=== PATIENT | female | born 1985 | race Caucasian/White ===

== ENCOUNTER → 2018-07-18 | Outpatient (CLI) | payer OTHER ==
--- NOTE | 2018-07-18 08:18 | CT ---
EXAMINATION TYPE: CT brain w con DATE OF EXAM: 07/18/2018 COMPARISON: 09/19/2011 HISTORY: Facial nerve disorder CT DLP: 999.8 mGycm Automated Exposure Control for Dose Reduction was Utilized. TECHNIQUE: CT scan of the head is performed with IV contrast.,CT scan of the head is performed withou t and with with IV Contrast, patient injected with 100 mL of Isovue 300. FINDINGS: Aneurysm coil clips creates spray artifact in the supraclinoid portion of the right interna l carotid artery. Mild calcific atheromatous changes are seen of the cavernous portion of the right i nternal carotid artery. Vascular stent is suspected within the right cavernous portion of the interna l carotid artery The ventricles and sulci are within normal limits in size. 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 This appears at least mild mass effect upon the supe rior tectum without obstruction of the cerebral aqueduct. The globes are intact and the visualized si nuses are clear. There is asymmetric enhancement in size of the enlarged left cavernous sinus such as on series 3 imag e 11. Although this is not the course of the facial nerve other nerves may be affected (3-6 excluding V3). No cerebellar pontine angle mass. IMPRESSION: Asymmetric size and enhancement of the left cavernous sinus that could relate to cavernous sinus aneu rysm, cavernous carotid fistula (less likely given the normal size of the left superior ophthalmic ve in), or extradural enhancement such as a meningioma. Although the 7th cranial nerve would be unaffect ed the 3rd through 6th cranial nerves excluding V3 would be affected. Further evaluation with enhance d MRI is recommended.
== END | disposition home or self-care (01) ==
LOC: RADCTMAIN 07:24
PROVIDERS: ATTEND Family Medicine
DX: D32.0 Benign neoplasm of cerebral meninges (principal); G51.9 Disorder of facial nerve, unspecified
CPT/HCPCS: 70460; Q9967

== ENCOUNTER 2021-07-18 03:49 | Inpatient (IN) | payer MEDICAID, OTHER ==
[2021-07-18] MEDS ORDERED: MAG HYDROX/AL HYDROX/SIMETH 30 ML CUP PO PRN (07:04)
[2021-07-18] MEDS ORDERED: ACETAMINOPHEN TAB 325 MG TAB PO PRN (07:04)
[2021-07-18] MEDS ORDERED: haloperidoL 5 MG TAB PO PRN (07:04)
[2021-07-18] MEDS ORDERED: MAGNESIUM HYDROXIDE 2,400 MG/10 ML CUP PO PRN (07:04)
[2021-07-18] MEDS ORDERED: LORazepam 1 MG TAB PO PRN (07:04)
[2021-07-18] MEDS ORDERED: HALOPERIDOL LACTATE 5 MG/ML 1 ML VIAL IM PRN (07:04)
[2021-07-18] MEDS ORDERED: LORazepam 2 MG/ML INJ IM PRN (07:04)
--- NOTE | 2021-07-18 07:44 | ED ---
Psych HPI - General Chief Complaint: Psychiatric Symptoms Stated Complaint: Mental health Time Seen by Provider: 07/18/21 04:12 Source: patient Mode of arrival: ambulatory - History of Present Illness MD Complaint: suicidal ideation, feels depressed -: month(s) Associated Psychiatric Symptoms: depression, suicidal ideation History of same: Yes Quality: getting worse Improves With: none Worsens With: none Context: recent alcohol abuse Associated Symptoms: denies other symptoms - Related Data Home Medications Medication Instructions Recorded Confirmed Aspirin 325 mg PO BID 05/15/16 05/15/16 Allergies Allergy/AdvReac Type Severity Reaction Status Date / Time No Known Allergies Allergy Verified 07/18/21 04:08 Review of Systems ROS Statement: Those systems with pertinent positive or pertinent negative responses have been documented in the HPI. ROS Other: All systems not noted in ROS Statement are negative. Constitutional: Denies: fever, chills Respiratory: Denies: cough, dyspnea Cardiovascular: Denies: chest pain, palpitations Gastrointestinal: Denies: abdominal pain, vomiting, diarrhea Genitourinary: Denies: dysuria, abnormal menses Musculoskeletal: Denies: back pain Neurological: Denies: headache, weakness, numbness Psychiatric: Reports: depression, suicidal thoughts. Denies: auditory hallucinations, visual hallucinations, homicidal thoughts Past Medical History Additional Past Medical History / Comment(s): aneurysm History of Any Multi-Drug Resistant Organisms: None Reported Past Surgical History: Tonsillectomy Additional Past Surgical History / Comment(s): brain coil and stent, cervical Past Psychological History: Anxiety, Depression Smoking Status: Current every day smoker Past Alcohol Use History: Occasional Past Drug Use History: Marijuana General Exam Limitations: no limitations General appearance: alert, in no apparent distress Head exam: Present: atraumatic, normocephalic Eye exam: Present: normal appearance. Absent: scleral icterus, conjunctival injection Respiratory exam: Present: normal lung sounds bilaterally. Absent: respiratory distress, wheezes, rales, rhonchi, stridor Cardiovascular Exam: Present: regular rate, normal rhythm, normal heart sounds. Absent: systolic murmur, diastolic murmur, rubs, gallop GI/Abdominal exam: Present: soft. Absent: distended, tenderness, guarding, rebound, rigid, mass Extremities exam: Present: normal inspection, normal capillary refill. Absent: pedal edema, calf tenderness Back exam: Present: normal inspection Neurological exam: Present: alert Psychiatric exam: Present: depressed, suicidal ideation. Absent: agitated, anxious, flat affect, manic, homicidal ideation Skin exam: Present: warm, dry, intact, normal color. Absent: rash Course Vital Signs 07/18/21 07/18/21 04:04 06:01 Temperature 97.9 F 98.9 F Pulse Rate 131 H 63 Respiratory 20 15 Rate Blood Pressure 133/90 101/73 O2 Sat by Pulse 98 100 Oximetry Medical Decision Making - Lab Data Lab Results 07/18/21 Range/Units 06:39 Coronavirus (PCR) Not Detected (Not Detectd)
[2021-07-18] MEDS: NICOTINE 14MG/24HR PATCH TRANSDERM SCH (10:09)
[2021-07-18] MEDS: ASPIRIN 325 MG TAB PO SCH (10:27)
[2021-07-18 10:28] VITALS: RESP 16
[2021-07-18 10:36] LABS: Appearance,Urine Turbid (Clear); Bacteria,Urine Occasional /hpf; Bilirubin,Urine Negative (Negative); Blood,Urine Trace (Negative); Color,Urine Yellow; Glucose,Urine (UA) Negative (Negative); Ketones,Urine Negative (Negative); Leukocyte Esterase,Urine Large (Negative); Mucus,Urine Few /hpf; Nitrite,Urine Negative (Negative); PH, Urine 5.5 (5.0-8.0); Protein,Urine Trace (Negative); RBC,Urine 8 /hpf (0-5); Specific Gravity,Urine 1.013 (1.001-1.035); Squamous Epithelial Cell,Urine 61 /hpf (0-4); Urobilinogen,Urine <2.0 mg/dL (<2.0); WBC,Urine 10 /hpf (0-5)
[2021-07-18 12:16] LABS: Basophils # (A) 0.1 k/uL (0-0.2); Basophils % (A) 1 %; Eosinophils # (A) 0.2 k/uL (0-0.7); Eosinophils % (A) 3 %; HCT 42.6 % (34.0-46.0); HGB 13.9 gm/dL (11.4-16.0); Lymphocytes # (A) 3.3 k/uL (1.0-4.8); Lymphocytes % (A) 38 %; MCH 29.2 pg (25.0-35.0); MCHC 32.7 g/dL (31.0-37.0); MCV 89.5 fL (80.0-100.0); Mean Platelet Volume 8.3; Monocytes # (A) 0.5 k/uL (0-1.0); Monocytes % (A) 5 %; Neutrophils # (A) 4.5 k/uL (1.3-7.7); Neutrophils % (A) 52 %; Platelet Count 282 k/uL (150-450); RBC 4.76 m/uL (3.80-5.40); RDW 12.7 % (11.5-15.5); WBC 8.7 k/uL (3.8-10.6)
[2021-07-18 12:34] LABS: ALT 63 U/L (4-34); AST 39 U/L (14-36); African American GFR (CKD) >90 (>60 ml/min/1.73 sqM); Albumin 4.2 g/dL (3.5-5.0); Alkaline Phosphatase 99 U/L (38-126); Anion Gap 4 mmol/L; Bilirubin, Delta 0.3 mg/dL (0.0-0.2); Blood Urea Nitrogen 15 mg/dL (7-17); Calcium 9.8 mg/dL (8.4-10.2); Carbon Dioxide 27 mmol/L (22-30); Chloride 108 mmol/L (98-107); Glucose 87 mg/dL (74-99); Non-African American GFR(CKD) >90 (>60 ml/min/1.73 sqM); Potassium 4.4 mmol/L (3.5-5.1); Sodium 139 mmol/L (137-145); Total Bilirubin 0.3 mg/dL (0.2-1.3); Total Protein 7.1 g/dL (6.3-8.2)
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
[2021-07-18] MEDS: LITHIUM CARBONATE 300 MG CAP PO SCH (20:58)
[2021-07-18 22:27] LABS: Chol/HDL Ratio 3.55 Ratio; LDL Cholesterol,Calculated 82.7 mg/dL (0.0-131.0)
[2021-07-19] MEDS: POTASSIUM CHLORIDE ER 10 MEQ TAB.ER.PRT PO SCH (09:18)
[2021-07-19] MEDS: MAGNESIUM OXIDE 400 MG TAB PO SCH (09:18)
[2021-07-19] MEDS: NICOTINE 14MG/24HR PATCH TRANSDERM SCH (09:18)
[2021-07-19] MEDS: ASPIRIN 325 MG TAB PO SCH (09:18)
[2021-07-19 12:08] LABS: Urine Alcohol Positive (Negative); Urine Barbiturate Negative (Negative); Urine Cocaine Negative (Negative); Urine Methadone Negative (Negative); Urine Opiates Negative (Negative); Urine Phencyclidine Negative (Negative)
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
[2021-07-19] MEDS: LITHIUM CARBONATE 300 MG CAP PO SCH (21:00)
[2021-07-20] MEDS: NICOTINE 14MG/24HR PATCH TRANSDERM SCH (08:35)
[2021-07-20] MEDS: POTASSIUM CHLORIDE ER 10 MEQ TAB.ER.PRT PO SCH (08:35)
[2021-07-20] MEDS: ASPIRIN 325 MG TAB PO SCH (08:35)
[2021-07-20] MEDS: MAGNESIUM OXIDE 400 MG TAB PO SCH (08:35)
[2021-07-20 08:38] VITALS: TEMP 97.3
--- NOTE | 2021-07-20 11:41 | P.PN ---
Progress Note - Text Progress Note Date: 07/20/21 Interval History: Patient was seen taking part in group today and was directable and agreeable to speak with underwriter in the office. Patient spoke about her relationship with her and claims that they got into an argument before she came into the hospital. She states that at that time she is feeling suicidal. She states that they were arguing about her infertility and that she wanted to get . She claims that he has been a strong source of support for her. She states that her mood has been fluctuating and describes "mood swings". She also claims that she has a history of manic episodes where she will not sleep for several days and "clean the house and other people's house". She states that her sleep has always been "an issue". She states that yesterday she slept well. She was agreeable to start Zoloft today for her anxiety and mood. She states that the lithium has been helping stabilize her mood and nighttime. She describes a fair appetite and is trying to begin going to groups. At this time patient denies any suicidal or homical ideations, intent or plan. Patient denies any auditory, visual hallucinations and denies any paranoia or delusions. Patient denies any side effects from the medications and has been compliant with meds. Mental Status Exam: General Appearance: Patient appears to be stated age is overweight, alert, directable, and cooperative. Behavior: Patient is calmly seated without any agitated behavior. Speech: Patient's speech is fluent and nonpressured. Mood/Affect: Mood is depressed however is improving mildly, affect is congruent and tearful at times Suicidality/Homicidality: Patient denies having any suicidal or homicidal i deation intent or plan. Perceptions: Patient denies any visual hallucinations and denies any auditory hallucinations Though content/process: There is no evidence of any delusional thought content and thought process is linear and goal-directed. Focused on her stressors. Memory and concentration: AOX3, grossly intact for the purposes of this session Judgment and insight: Improving mildly Assessment Bipolar disorder, current episode depressed Cannabis use disorder Alcohol use disorder Nicotine dependence Plan: -Patient continues to meet criteria for inpatient psychiatric admission for sym ptom stabilization and safety. Patient has signed adult voluntary form and medication consent and was placed in patient's chart. -Medications: Switch lithium to lithium ER 900 mg daily at bedtime for mood stabilization. Added on Zoloft 25 mg daily for mood/anxiety. Added melatonin 10 mg daily at bedtime for sleep. -When necessary Ativan and Haldol for agitation/aggression. -NRT - nicotine patch -SW on board for discharge planning. Encouraged the patient to participate in milieu. Likely discharge tomorrow back home the patient is improving.
[2021-07-20] MEDS: SERTRALINE 25 MG TAB PO SCH (13:15)
[2021-07-20] MEDS ORDERED: LITHIUM CARBONATE ER 450 MG TABLET.ER PO SCH (21:00)
[2021-07-20] MEDS ORDERED: MELATONIN 5 MG TABLET PO SCH (21:00)
--- NOTE | 2021-07-21 00:22 | P.CONS ---
History of Present Illness - Reason for Consult Consult date: 07/20/21 - History of Present Illness The patient is a 35-year-old female with a PMH of substance abuse, tobacco abuse, and alcohol abuse who presented to the emergency room for depression and suicidal ideation. She was admitted to the mental health unit where she was seen and evaluated. The patient reports that she had recently got into an argument which escalated with her . She had felt really bad about her life and proceeded to use methamphetamines. She reports smoking 1 pack of cigarettes daily as well as weekly alcohol use. Reports marijuana use as well. Denied any physical complaints at the time of interview. She denied chest discomfort, shortness of breath, fever, chills, cough, nausea, vomiting, abdomi nal pain, diarrhea. Review of systems: Pertinent positives and negatives as discussed in HPI, a complete review of systems was performed and all other systems are negative. Physical examination: General: non toxic, no distress, appears at stated age, obese Derm: no unusual rashes/lesions no unusual ecchymoses, warm, dry Head: atraumatic, normocephalic, symmetric Eyes: EOMI, no lid lag, anicteric sclera, pupils equal round reactive to light ENT: Nose and ears atraumatic, no thrush, no pharyngeal erythema Neck: No thyromegaly, no cervical lymphadenopathy, trachea midline, supple Mouth: no lip lesion, mucus membranes moist Cardiovascular: S1S2 reg, no murmur, positive posterior tibial pulse bilateral, no edema, capillary refill less than 2 seconds Lungs: CTA bilateral, no rhonchi, no rales , no accessory muscle use Abdominal: soft, nontender to palpation, no guarding, no appreciable org anomegaly, normal bowel sounds Ext: no gross muscle atrophy, muscle strength 5 out of 5 in all 4 extremities grossly, no contractures, Neuro: CN II-XI grossly intact, light touch intact all 4 extremities, finger to nose within normal limits, Psych: Alert, oriented, appropriate affect Assessment/plan Substance abuse -Strongly advised on importance of cessation Tobacco abuse -Advised on importance of cessation -Nicotine patch as needed Depression and suicidal ideation -As per psychiatry Thank you for allowing us to participate in the care of this patient. We will follow peripherally. Do not hesitate to contact us with questions. Someone can be reached from the [facility] hospitalist group at all hours of the day at [phone]. Past Medical History Additional Past Medical History / Comment(s): aneurysm History of Any Multi-Drug Resistant Organisms: None Reported Past Surgical History: Tonsillectomy Additional Past Surgical History / Comment(s): brain coil and stent, cervical Past Psychological History: Anxiety, Depression Smoking Status: Current every day smoker Past Alcohol Use History: Occasional Past Drug Use History: Marijuana Medications and Allergies Home Medications Medication Instructions Recorded Confirmed Type Aspirin 325 mg PO DAILY 05/15/16 07/18/21 History Magnesium Oxide [Mag-Ox] 400 mg PO DAILY 07/18/21 07/18/21 History Potassium Gluconate [Potassium 198 mg PO DAILY 07/18/21 07/18/21 History Gluconate ER] Allergies Allergy/AdvReac Type Severity Reaction Status Date / Time No Known Allergies Allergy Verified 07/18/21 08:24 Physical Exam Vitals: Vital Signs Temp Pulse Resp BP Pulse Ox 07/20/21 08:35 97.3 F L 103 H 16 153/87 98 Results CBC & Chem 7: 07/18/21 11:39 07/18/21 11:39
[2021-07-21] MEDS: NICOTINE 14MG/24HR PATCH TRANSDERM SCH (09:11)
[2021-07-21] MEDS: SERTRALINE 25 MG TAB PO SCH (09:11)
[2021-07-21] MEDS: MAGNESIUM OXIDE 400 MG TAB PO SCH (09:11)
[2021-07-21] MEDS: ASPIRIN 325 MG TAB PO SCH (09:11)
[2021-07-21] MEDS: POTASSIUM CHLORIDE ER 10 MEQ TAB.ER.PRT PO SCH (09:11)
[2021-07-21 09:40] VITALS: BP 127/77; PULSE 119
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
== END 2021-07-21 13:55 | disposition home or self-care (01) | DRG 885 ==
LOC: EC 03:49 → 3MHU 07:01
PROVIDERS: ADMIT Psychiatry & Neurology Psychiatry; ATTEND Psychiatry & Neurology Psychiatry
DX: F31.30 Bipolar disorder, current episode depressed, mild or moderate severity, unspecified (principal); R45.851 Suicidal ideations; I67.1 Cerebral aneurysm, nonruptured; F10.10 Alcohol abuse, uncomplicated; Z20.822 Contact with and (suspected) exposure to COVID-19; F12.10 Cannabis abuse, uncomplicated; G43.909 Migraine, unspecified, not intractable, without status migrainosus; M79.7 Fibromyalgia; E28.2 Polycystic ovarian syndrome; N97.9 Female infertility, unspecified; F41.9 Anxiety disorder, unspecified; G47.00 Insomnia, unspecified; F17.210 Nicotine dependence, cigarettes, uncomplicated; Z71.6 Tobacco abuse counseling; Z79.82 Long term (current) use of aspirin; Z79.899 Other long term (current) drug therapy; Z90.89 Acquired absence of other organs; Z95.828 Presence of other vascular implants and grafts; Z59.9 Problem related to housing and economic circumstances, unspecified; Z71.51 Drug abuse counseling and surveillance of drug abuser
CPT/HCPCS: 80053; 80061; 80178; 80306; 81001; 81025; 82075; 82248; 83036; 84443; 85025; 87635; 99285

== ENCOUNTER 2022-05-07 23:06 | Inpatient (IN) | payer MEDICAID, OTHER ==
--- NOTE | 2022-05-07 23:31 | ED ---
Psych HPI - General Chief Complaint: Psychiatric Symptoms Stated Complaint: Mental Health Time Seen by Provider: 05/07/22 23:14 Source: patient, RN notes reviewed Mode of arrival: ambulatory - History of Present Illness Initial Comments: This is a pleasant 36-year-old female with a history of bipolar depression. She presents to the emergency department today stating that she has had ongoing suicidal thoughts. Patient apparently had a suicide attempt earlier in the year. Patient has been undomiciled for the last 6 months. Patient is , has no kids, is also been staying with his brother. Patient has been staying with her mother. Patient states she previously was using illicit drugs but is now off of those. She does admit to marijuana. No alcohol abuse. No homicidal ideation. He does not sound like the patient has any specific plan with regard to suicidal ideation. Patient states that her temperature is the most prominent factor in her current mood . No headache, no fever or chills, no changes in vision or hearing, no sore throat or difficulty with speech, no neck pain, no chest pain or shortness of breath, no abdominal pain, no nausea or vomiting, no changes in urination or bowel movements, no numbness or tingling, no extremity pain, no skin rashes or lesions. Past medical, surgical, social, and family history reviewed. MD Complaint: suicidal ideation - Related Data Home Medications Medication Instructions Recorded Confirmed Magnesium Oxide [Mag-Ox] 400 mg PO DAILY 07/18/21 07/18/21 Potassium Gluconate [Potassium 198 mg PO DAILY 07/18/21 07/18/21 Gluconate ER] Previous Rx's Medication Instructions Recorded Aspirin 325 mg PO DAILY 30 Days tab 07/21/21 [place] Carbonate ER [Lithobid] 900 mg PO HS 30 Days tablet 07/21/21 Melatonin 10 mg PO HS 30 Days tablet 07/21/21 Nicotine 14Mg/24Hr Patch [Habitrol] 1 patch TRANSDERM DAILY 14 Days 07/21/21 patch Sertraline [Zoloft] 25 mg PO DAILY 30 Days tab 07/21/21 Allergies Allergy/AdvReac Type Severity Reaction Status Date / Time No Known Allergies Allergy Verified 05/07/22 23:11 Review of Systems ROS Statement: Those systems with pertinent positive or pertinent negative responses have been documented in the HPI. ROS Other: All systems not noted in ROS Statement are negative. Past Medical History Additional Past Medical History / Comment(s): aneurysm History of Any Multi-Drug Resistant Organisms: None Reported Past Surgical History: Tonsillectomy Additional Past Surgical History / Comment(s): brain coil and stent, cervical Past Psychological History: Anxiety, Bipolar, Depression Smoking Status: Former smoker Past Alcohol Use History: Occasional Past Drug Use History: Marijuana, Methamphetamine General Exam Limitations: no limitations General appearance: alert, in no apparent distress Head exam: Present: atraumatic, normocephalic, normal inspection Eye exam: Present: normal appearance, PERRL, EOMI. Absent: scleral icterus, conjunctival injection, periorbital swelling ENT exam: Present: normal exam, mucous membranes moist Neck exam: Present: normal inspection. Absent: tenderness, meningismus, lymphadenopathy Respiratory exam: Present: normal lung sounds bilaterally. Absent: respiratory distress, wheezes, rales, rhonchi, stridor Cardiovascular Exam: Present: regular rate, normal rhythm, normal heart sounds. Absent: systolic murmur, diastolic murmur, rubs, gallop, clicks GI/Abdominal exam: Present: soft, normal bowel sounds. Absent: distended, tenderness, guarding, rebound, rigid Extremities exam: Present: normal inspection, full ROM, normal capillary refill. Absent: tenderness, pedal edema, joint swelling, calf tenderness Back exam: Present: normal inspection Neurological exam: Present: alert, oriented X3, CN II-XII intact Psychiatric exam: Present: normal affect, depressed (Tearful), anxious, suicidal ideation Skin exam: Present: warm, dry, intact, normal color. Absent: rash Course Vital Signs 05/07/22 23:08 Temperature 97.9 F Pulse Rate 109 H Respiratory 20 Rate Blood Pressure 125/83 O2 Sat by Pulse 100 Oximetry - Reevaluation(s) Reevaluation #1: 05/08/22 01:24 Patient reevaluated and is hemodynamically stable. Heart rate has normalized. Patient in no distress resting complaining the room. Medical Decision Making - Medical Decision Making Patient does not appear to be systemically ill. We will clear the patient for emergency psychiatric services. Patient had an EPS evaluation was deemed appropriate for admission. The case was discussed in detail with ED attending physician. Presentation, findings, treatment plan discussed in detail. [employer] Filling Machine Operator Dr. Maciel Disposition Clinical Impression: Suicidal ideation, Depression, Acute anxiety Disposition: ADMITTED IP TO THIS HOSP Condition: Stable Is patient prescribed a controlled substance at d/c from ED?: No Referrals: None,Stated [Primary Care Provider] - 1-2 days Time of Disposition: 01:25 Decision to Admit Reason: Admit from EC Decision Time: 01:25
[2022-05-08] MEDS ORDERED: MAG HYDROX/AL HYDROX/SIMETH 30 ML CUP PO PRN (10:24)
[2022-05-08] MEDS ORDERED: MAGNESIUM HYDROXIDE 2,400 MG/10 ML CUP PO PRN (10:24)
[2022-05-08] MEDS ORDERED: HALOPERIDOL LACTATE 5 MG/ML 1 ML VIAL IM PRN (10:24)
[2022-05-08] MEDS ORDERED: LORazepam 1 MG TAB PO PRN (10:24)
[2022-05-08] MEDS ORDERED: ACETAMINOPHEN TAB 325 MG TAB PO PRN (10:24)
[2022-05-08] MEDS ORDERED: LORazepam 1 MG/0.5 ML VIAL IM PRN (10:26)
[2022-05-08] MEDS: NICOTINE 14MG/24HR PATCH TRANSDERM SCH (10:30)
[2022-05-08] MEDS ORDERED: haloperidoL 5 MG TAB PO PRN (10:36)
[2022-05-08 18:05] LABS: Appearance,Urine Clear (Clear); Bacteria,Urine Rare /hpf; Bilirubin,Urine Negative (Negative); Blood,Urine Negative (Negative); Color,Urine Yellow; Glucose,Urine (UA) Negative (Negative); Hyaline Casts,Urine 1 /lpf (0-2); Ketones,Urine Negative (Negative); Leukocyte Esterase,Urine Negative (Negative); Mucus,Urine Rare /hpf; Nitrite,Urine Negative (Negative); PH, Urine 7.5 (5.0-8.0); Protein,Urine Trace (Negative); RBC,Urine 1 /hpf (0-5); Specific Gravity,Urine 1.023 (1.001-1.035); Squamous Epithelial Cell,Urine 5 /hpf (0-4); Urobilinogen,Urine <2.0 mg/dL (<2.0); WBC,Urine 1 /hpf (0-5)
[2022-05-08 18:07] LABS: Amphetamine Screen,Urine Not Detected (NotDetected); Barbiturate Screen,Urine Not Detected (NotDetected); Benzodiazepines Screen,Urine Not Detected (NotDetected); Cocaine Screen,Urine Not Detected (NotDetected); Methadone Screen, Urine Not Detected (NotDetected); Opiate Screen,Urine Not Detected (NotDetected); Oxycodone Screen, Urine Not Detected (NotDetected); Phencyclidine Screen,Urine Not Detected (NotDetected); Tricyclic Antidepressant,Urine Not Detected (NotDetected); Urn Cannabinoid Scrn Detected (NotDetected)
[2022-05-08] MEDS ORDERED: NON FORMULARY DRUG (Potassium Gluconate [Potassium Gluconate Er] 99 MG Tablet) PO SCH (20:00)
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
[2022-05-08] MEDS: ASPIRIN 325 MG TAB PO SCH (21:21)
[2022-05-08] MEDS: MAGNESIUM OXIDE 400 MG TAB PO SCH (21:21)
[2022-05-08] MEDS: SERTRALINE 50 MG TAB PO SCH (21:22)
[2022-05-08] MEDS: LITHIUM CARBONATE ER 450 MG TABLET.ER PO SCH (21:22)
--- NOTE | 2022-05-08 23:54 | P.CONS ---
History of Present Illness - Reason for Consult Consult date: 05/08/22 - History of Present Illness The patient is a 36-year-old female with a PMH of bipolar depression and polysubstance abuse who had presented to the emergency room with complaints of depression and suicidal ideation. The patient was admitted to the mental health unit where she was seen and evaluated in the library with the door open. The patient reported that her and her had recently been experiencing homelessness. She stated that she had also recently quit alcohol, crystal meth, and tobacco use this past November, which was causing her mental health to worsen. She also reported a history of hypokalemia and hypomagnesemia for which she takes supplements on a daily basis. She reported feeling at her baseline at the time of interview. Denied experiencing chest discomfort or shortness of breath, fever, chills, cough, nausea, vomiting, abdominal pain, diarrhea. Urine toxicology was positive for marijuana. Review of systems: Pertinent positives and negatives as discussed in HPI, a complete review of systems was performed and all other systems are negative. Physical examination: General: non toxic, no distress, appears at stated age, overweight Derm: no unusual rashes/lesions, no unusual ecchymoses, warm, dry Head: atraumatic, normocephalic, symmetric Eyes: EOMI, no lid lag, anicteric sclera ENT: Nose and ears atraumatic, no thrush, no pharyngeal erythema Neck: trachea midline, supple Mouth: no lip lesion, mucus membranes moist Cardiovascular: S1S2 reg, no murmur, no edema Lungs: CTA bilateral, no rhonchi, no rales , no accessory muscle use Abdominal: soft, nontender to palpation, no guarding Ext: no gross muscle atrophy, no contractures, Neuro: No gross focal neuro deficits noted Psych: Alert, oriented, appropriate affect Assessment/plan Polysubstance abuse -Strongly advised on importance of cessation Hypokalemia and hypomagnesemia, chronic -Obtain BMP and magnesium levels -Continue with supplementation at this time Bipolar disorder -As per psychiatry Thank you for allowing us to participate in the care of this patient. We will follow peripherally. Do not hesitate to contact us with questions. Someone can be reached from the [facility] hospitalist group at all hours of the day at [phone]. Past Medical History Additional Past Medical History / Comment(s): aneurysm History of Any Multi-Drug Resistant Organisms: None Reported Past Surgical History: Tonsillectomy Additional Past Surgical History / Comment(s): brain coil and stent, cervical Past Psychological History: Anxiety, Bipolar, Depression Smoking Status: Former smoker Past Alcohol Use History: Occasional Past Drug Use History: Marijuana, Methamphetamine - Past Family History Father Family Medical History: Chest Pain / Angina Medications and Allergies Home Medications Medication Instructions Recorded Confirmed Type Magnesium Oxide [Mag-Ox] 400 mg PO DAILY 07/18/21 07/18/21 History Potassium Gluconate [Potassium 198 mg PO DAILY 07/18/21 07/18/21 History Gluconate ER] Aspirin 325 mg PO DAILY 30 Days tab 07/21/21 Rx [place] Carbonate ER [Lithobid] 900 mg PO HS 30 Days tablet 07/21/21 Rx Melatonin 10 mg PO HS 30 Days tablet 07/21/21 Rx Nicotine 14Mg/24Hr Patch [Habitrol] 1 patch TRANSDERM DAILY 14 Days 07/21/21 Rx patch Sertraline [Zoloft] 25 mg PO DAILY 30 Days tab 07/21/21 Rx Allergies Allergy/AdvReac Type Severity Reaction Status Date / Time No Known Allergies Allergy Verified 05/07/22 23:11 Results Labs: Abnormal Lab Results - Last 24 Hours (Table) 05/07/22 Range/Units 23:54 Urine Protein Trace H (Negative) Ur Squamous Epith Cells 5 H (0-4) /hpf Urine Bacteria Rare H (None) /hpf Urine Mucus Rare H (None) /hpf U Marijuana (THC) Screen Detected H (NotDetected)
[2022-05-09] MEDS: ASPIRIN 325 MG TAB PO SCH (09:12)
[2022-05-09] MEDS: NICOTINE 14MG/24HR PATCH TRANSDERM SCH (09:12)
[2022-05-09] MEDS: MAGNESIUM OXIDE 400 MG TAB PO SCH (09:12)
[2022-05-09 18:55] LABS: African American GFR (CKD) >90 (>60 ml/min/1.73 sqM); Anion Gap 8 mmol/L; Blood Urea Nitrogen 22 mg/dL (7-17); Calcium 9.9 mg/dL (8.4-10.2); Carbon Dioxide 29 mmol/L (22-30); Chloride 101 mmol/L (98-107); Glucose 97 mg/dL (74-99); Magnesium 2.3 mg/dL (1.6-2.3); Non-African American GFR(CKD) 81 (>60 ml/min/1.73 sqM); Potassium 4.2 mmol/L (3.5-5.1); Sodium 138 mmol/L (137-145)
[2022-05-09] MEDS ORDERED: traZODone HCL 50 MG TAB PO PRN (20:48)
[2022-05-09] MEDS ORDERED: traZODone HCL 50 MG TAB PO SCH (21:00)
[2022-05-09] MEDS: SERTRALINE 50 MG TAB PO SCH (21:11)
[2022-05-09] MEDS: LITHIUM CARBONATE ER 450 MG TABLET.ER PO SCH (21:11)
--- NOTE | 2022-05-09 22:19 | P.PN ---
Progress Note - Text Progress Note Date: 05/09/22 Interval history: Patient was seen socializing with peers and was directable and agreeable to speak with tech writer. She reports mood lability, was feeling "crappy" earlier today but reports improved mood tonight. She reports sleep was "up and down" last night with frequent nighttime awakenings. At this time patient denies any suicidal or homicidal ideation, intent or plan. Denies any auditory or visual hallucinations. Patient denies any side effects from the medications and has been compliant with meds. Mental status exam: General Appearance: Patient appears to be stated age is alert, dressed in casual attire, fair hygiene and grooming. Behavior: Patient is pleasant without any agitated behavior. Speech: Patient's speech is fluent and non-pressured. Mood/Affect: Patient reports their mood is improving, affect is congruent and constricted. Suicidality/Homicidality: Patient denies having any homicidal ideation intent or plan. Denies any suicidal ideation, intent or plan at this time. Perceptions: Patient denies any visual hallucinations and denies any auditory hallucinations. Though content/process: There is no evidence of any delusional thought content and thought process is linear and goal-directed. Memory and concentration: AOX3, grossly intact for the purposes of this session. Judgment and insight: improving mildly Assessment/Plan: Continue with current diagnosis. Patient continues to meet criteria for inpatient psychiatric admission for symptom stabilization and safety. Start Trazodone 50 mg QHS PRN for sleep. Monitor for medication compliance and for any psychotropic medication side effects. Will continue to monitor ongoing response to treatment. Encouraged participation in milieu.
[2022-05-10] MEDS: NICOTINE 14MG/24HR PATCH TRANSDERM SCH (09:09)
[2022-05-10] MEDS: ASPIRIN 325 MG TAB PO SCH (09:09)
[2022-05-10] MEDS: MAGNESIUM OXIDE 400 MG TAB PO SCH (09:10)
--- NOTE | 2022-05-10 11:58 | P.PN ---
Progress Note - Text Progress Note Date: 05/10/22 Interval History: Patient was seen taking part in group today and was directable and agreeable to speak with copywriter in the office. Patient states that she has been off her medications for several months now and states that she has not been doing her follow-up and [facility] is closed her case. She claims that she is doing a bit better since coming into the hospital however continues to report mood lability and also some depression and anxiety. She states that she would rather take the Zoloft in the morning and the lithium at nighttime. She claims that the trazodone has been causing her to have nightmares and was agreeable to try Remeron instead for sleep tonight. Claims that she is going to groups and the timing to participate as best he can. States that she has been sober from drugs for quite some time now and has been very happy for herself and also will be able to stay with her mom upon discharge. At this time patient denies any suicidal or homical ideations, intent or plan. Patient denies any auditory, visual hallucinations and denies any paranoia or delusions. Patient as been compliant with her medications. Mental Status Exam: General Appearance: Patient appears to be stated age is alert, dressed in casual attire, fair hygiene and grooming. Behavior: Patient is seated without any agitated behavior. Attempts to cooperate. Speech: Patient's speech is fluent and non-pressured. Mood/Affect: Patient reports their mood is improving mildly, affect is congruent Suicidality/Homicidality: Patient denies having any homicidal ideation intent or plan. Denies any suicidal ideation, intent or plan at this time. Perceptions: Patient denies any visual hallucinations and denies any auditory hallucinations. Though content/process: There is no evidence of any delusional thought content and thought process is linear and goal-directed. Memory and concentration: AOX3, grossly intact for the purposes of this session. Judgment and insight: Improving mildly IMPRESSIONS: Mood disorder unspecified, rule out bipolar disorder vs MDD Cannabis use disorder, mild Methamphetamine use disorder, in early remission Alcohol use disorder, in early remission Nicotine dependence, in early remission Plan: -Patient continues to meet criteria for inpatient psychiatric admission for sym ptom stabilization and safety. Patient has signed adult voluntary form and medication consent and was placed in patient's chart. -Medications: Zoloft 50 mg daily for depression/anxiety, [place] ER 900 mg QHS for mood stabilization. Discontinue trazodone and replaced with Remeron 15 mg daily at bedtime for insomnia/mood. -When necessary Ativan and Haldol for agitation/aggression. -NRT - nicotine patch -SW on board for discharge planning. Encouraged the patient to participate in milieu. Possibly discharge tomorrow if patient continues to improve. She will be going to her mother's house upon discharge and following up with [facility].
[2022-05-10] MEDS: SERTRALINE 50 MG TAB PO SCH (12:43)
[2022-05-10] MEDS ORDERED: MIRTAZAPINE 15 MG TAB PO SCH (21:00)
[2022-05-10] MEDS: LITHIUM CARBONATE ER 450 MG TABLET.ER PO SCH (21:22)
[2022-05-11 06:54] VITALS: BP 95/70; PULSE 87; RESP 16; TEMP 98.9
[2022-05-11] MEDS: NICOTINE 14MG/24HR PATCH TRANSDERM SCH (09:09)
[2022-05-11] MEDS: SERTRALINE 50 MG TAB PO SCH (09:09)
[2022-05-11] MEDS: ASPIRIN 325 MG TAB PO SCH (09:09)
[2022-05-11] MEDS: MAGNESIUM OXIDE 400 MG TAB PO SCH (09:09)
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
== END 2022-05-11 12:25 | disposition home or self-care (01) | DRG 885 ==
LOC: EC 23:06 → 3MHU 05-08 06:04 → EC 05-08 09:35
PROVIDERS: ADMIT Psychiatry & Neurology Psychiatry; ATTEND Psychiatry & Neurology Psychiatry
DX: F31.30 Bipolar disorder, current episode depressed, mild or moderate severity, unspecified (principal); R45.851 Suicidal ideations; F12.10 Cannabis abuse, uncomplicated; F15.11 Other stimulant abuse, in remission; F10.11 Alcohol abuse, in remission; Z95.828 Presence of other vascular implants and grafts; E87.6 Hypokalemia; E83.42 Hypomagnesemia; F17.211 Nicotine dependence, cigarettes, in remission; F41.9 Anxiety disorder, unspecified; F51.5 Nightmare disorder; T43.215A Adverse effect of selective serotonin and norepinephrine reuptake inhibitors, initial encounter; G47.00 Insomnia, unspecified; Z62.810 Personal history of physical and sexual abuse in childhood; Z20.822 Contact with and (suspected) exposure to COVID-19; Z59.00 Homelessness unspecified; Z79.82 Long term (current) use of aspirin; Z79.899 Other long term (current) drug therapy; Z91.51 Personal history of suicidal behavior; Z63.0 Problems in relationship with spouse or partner; Z28.310 Unvaccinated for COVID-19; Z81.8 Family history of other mental and behavioral disorders
CPT/HCPCS: 80048; 80306; 81003; 81025; 82075; 83735; 87635; 99285

== ENCOUNTER → 2022-09-20 | Outpatient (CLI) | payer OTHER ==
--- NOTE | 2022-09-20 14:05 | US ---
EXAMINATION TYPE: US transvaginal DATE OF EXAM: 09/20/2022 COMPARISON: NONE CLINICAL HISTORY: E28.2 PCOS. abn menses TECHNIQUE: Transvaginal (TV). EXAM MEASUREMENTS: Uterus: 6.2 x 3.1 x 4.8 cm Endometrial Stripe: .4 cm Right Ovary: 3.1 x 2.1 x 2.1 cm Left Ovary: 2.7 x 2.1 x 2.5 cm 1. Uterus: Anteverted wnl 2. Endometrium: wnl 3. Right Ovary: Follicles seen. 4. Left Ovary: Follicles seen. 5. Bilateral Adnexa: wnl 6. Posterior cul-de-sac: wnl Ovaries are symmetric and normal in size with peripheral subcentimeter follicles seen bilaterally. No concerning adnexal masses. IMPRESSION: As above.
--- NOTE | 2022-09-20 18:15 | CT ---
EXAMINATION TYPE: CT angio head DATE OF EXAM: 09/20/2022 COMPARISON: 07/18/2018 HISTORY: 36-year-old female Z82.49, Hx aneurysm and clips. TECHNIQUE: CT of the brain with IV Contrast, patient injected with 100 mL of Isovue 370. Patient decl ined the initial noncontrast scan. Coronal/sagittal reconstructions performed. 3-D reconstructions ge nerated on a dedicated independent workstation. CT DLP: 1019.90 mGycm Automated exposure control for dose reduction was used. FINDINGS: Artifact from metal clip noted along the supraclinoid right ICA. There appears to be [id number] focal narrowing of the ICA at this level, refer to axial image 181. The remainder of the bilateral i nternal carotid arteries are patent as is the remainder of the anterior circulation. The vertebral arteries are codominant and patent throughout their course. Small bilateral posterior c ommunicating arteries. Remainder of the posterior circulation is also patent. No aneurysmal change is seen. Dural venous sinuses are patent. No midline shift, mass effect, enhancing intracranial mass, or hydrocephalus is seen. Leftward nasal septal deviation. Paranasal sinuses and mastoid air cells are well pneumatized. Orbits and globes are intact. IMPRESSION: 1. ARTIFACT FROM METAL CLIP ALONG THE SUPRACLINOID RIGHT ICA LIMITING ASSESSMENT IN THIS REGION. THER E MAY BE A MILD OR MODERATE FOCAL STENOSIS OF THE ICA AT THIS LEVEL. 2. OTHERWISE, BOTH ANTERIOR AND POSTERIOR CIRCULATIONS ARE PATENT. NO ADDITIONAL ANEURYSMAL CHANGE IS SEEN.
== END | disposition home or self-care (01) ==
LOC: RADUSWWP 12:52
PROVIDERS: ATTEND Family Medicine
DX: E28.2 Polycystic ovarian syndrome (principal); Z82.49 Family history of ischemic heart disease and other diseases of the circulatory system
CPT/HCPCS: 76856; 70496; Q9967

== ENCOUNTER 2024-04-03 21:00 | Emergency (ER) | payer OTHER ==
[2024-04-03 21:06] VITALS: RESP 18; TEMP 97.7
--- NOTE | 2024-04-03 22:25 | ED ---
General Adult HPI - General Chief complaint: Syncope Stated complaint: Fall-Head Injury Time Seen by Provider: 04/03/24 21:47 Source: patient, EMS Mode of arrival: EMS Limitations: no limitations - History of Present Illness Initial comments: Patient is a 38-year-old female with past medical history of an aneurysm status post stenting presenting today for syncopal episode. Patient states that earlier this evening she was not feeling well, had a couple of sips of wine and half a burger as well as some noodles and did seem to feel better. Then she fe lt she was "going to be sick" so she walked from her camper to her mother's house, walked up the steps and felt dizzy and again lose consciousness, causing her to fall backward and hit her head on the cement. She did fell down 2 stairs. Patient was found by her boyfriend and unconscious for approximately 1 minute. Was awake upon his assessment he tried to walk her to the house however she became pale again and sat down to the kitchen table with her head on her hands, boyfriend stating that her eyes rolled back in her head and she appeared pale. No seizure activity witness, history of seizures, no urinary incontinence or tongue biting. Patient was unconscious for about another minute. EMS arrived and patient was awake and alert. Pt states In her once before a few years ago and at that time when she was told that her potassium magnesium were very low. Also states that at that time her blood pressure was "90/10 and so she was "rushed to the hospital". Today, patient's blood pressure 122 systolic. She denies any recent episodes of vomiting or diarrhea, fevers. Denies any chest pain palpitations or shortness of breath. No history of sudden cardiac . Currently denies any numbness or weakness. States she feels like a little bit of pain at the base of her neck but denies any midline neck pain. Denies any changes in vision or slurred speech. Does take 325 mg aspirin daily last dose was this morning. Denies chance of . Denies any vaginal bleeding or dysuria or hematuria. pt denies illicit drug use, does state marijuana today" proximally 4 PM which she does every day. - Related Data Previous Rx's Medication Instructions Recorded Aspirin 325 mg PO DAILY 30 Days tab 05/11/22 Strayhorn Carbonate ER [Lithobid] 900 mg PO HS 30 Days tab 05/11/22 Magnesium Oxide [Mag-Ox] 400 mg PO DAILY tab 05/11/22 Mirtazapine [Remeron] 15 mg PO HS 30 Days tab 05/11/22 Nicotine 14Mg/24Hr Patch [Habitrol] 1 patch TRANSDERM DAILY 30 Days 05/11/22 patch Sertraline [Zoloft] 50 mg PO DAILY 30 Days tab 05/11/22 Allergies Allergy/AdvReac Type Severity Reaction Status Date / Time No Known Allergies Allergy Verified 04/03/24 21:06 Review of Systems ROS Statement: Those systems with pertinent positive or pertinent negative responses have been documented in the HPI. ROS Other: All systems not noted in ROS Statement are negative. Constitutional: Denies: fever, chills, weakness Eyes: Denies: vision change Respiratory: Denies: dyspnea Cardiovascular: Reports: syncope. Denies: chest pain, palpitations, edema Gastrointestinal: Reports: nausea. Denies: abdominal pain, vomiting, diarrhea, hematochezia Genitourinary: Denies: dysuria, hematuria Neurological: Reports: headache. Denies: weakness, numbness, paresthesias, confusion Past Medical History Additional Past Medical History / Comment(s): aneurysm History of Any Multi-Drug Resistant Organisms: None Reported Past Surgical History: Tonsillectomy Additional Past Surgical History / Comment(s): brain coil and stent, cervical Past Psychological History: Anxiety, Bipolar, Depression Smoking Status: Former smoker Past Alcohol Use History: Occasional Past Drug Use History: Marijuana, Methamphetamine - Past Family History Father Family Medical History: Chest Pain / Angina General Exam - General Exam Comments Initial Comments: PE: CONSTITUTIONAL: No apparent distress, awake, somewhat ill appearing but nontoxic, alert SKIN: Warm, dry, no jaundice, hives or petechiae EYES: Pupils are equally round, extraocular movements intact without nystagmus, clear conjunctiva, non-icteric sclera HENT: Normocephalic, hematoma to left posterior parietal occiput, moist mucus membranes, oropharynx clear without exudates NECK: , Full range of motion, normal appearance, There is no midline cervical neck tenderness or step-offs. The patient denies any numbess, tingling, or weakness of the extremities when moving neck through full ROM. The patient is able to range their neck completely without midline cervical pain, numbness, tingling or weakness. PULMONARY: Clear to auscultation without wheezes, rhonchi, or rales, normal excursion, no accessory muscle use and no stridor CARDIOVASCULAR: Regular rate, rhythm, normal S1 and S2. No appreciated murmurs, rubs or gallops. Strong radial pulses with intact distal perfusion. No lower extremity edema GASTROINTESTINAL: Soft, non-tender, non-distended, no palpable masses, no rebound or guarding. No hepatosplenomegaly MUSCULOSKELETAL: Extremities have no gross deformity, no edema, redness, or swelling. No calf swelling NEUROLOGIC:_a/o x 3, GCS 15, normal mentation and speech. Moves all extremities x 4 without motor or sensory deficit; cranial nerves: II (visual [place] without defects), III, IV and (extraocular movements are intact, pupils are equal with normal reaction to light), V (intact facial sensation and jaw opening), VII (no facial droop), IX and X (normal palate movement, midline uvula, normal voice), XI (symmetrical shoulder shrug and lateral head rotation against resis tance), XII (midline tongue protrusion). Motor strength is 5/5 in all extremities. No abnormal movements. Normal muscle tone. Sensation to light touch is intact bilaterally. PSYCHIATRIC:_normal mood and affect, thought process is clear and linear Limitations: no limitations Course Vital Signs 04/03/24 04/04/24 21:02 01:35 Temperature 97.7 F Pulse Rate 90 67 Respiratory 18 18 Rate Blood Pressure 102/71 104/55 O2 Sat by Pulse 98 96 Oximetry EKG Findings - EKG Comments: EKG Findings:: Sinus rhythm, rate 68/min, WA interval 163 ms, QRS duration 90 ms, QT/QTc 397/4 to 14 ms, normal axis, no ST elevations or depressions, no delta waves, no Brugada pattern, no arrhythmia Medical Decision Making - Medical Decision Making Was pt. sent in by a medical professional or institution (, PA, CYBER THREAT ANALYST, urgent care, hospital, or halfway...) When possible be specific @ -No Did you speak to anyone other than the patient for history (EMS, parent, family, police, friend...)? What history was obtained from this source @Obtained additional history from patient's significant other and mother at bedside Did you review nursing and triage notes (agree or disagree)? Why? @ -I reviewed and agree with nursing and triage notes Were old charts reviewed (outside hosp., previous admission, EMS record, old EKG, old radiological studies, urgent care reports/EKG's, halfway records)? Report findings @Old charts were reviewed Differential Diagnosis (chest pain, altered mental status, abdominal pain women, abdominal pain men, vaginal bleeding, weakness, fever, dyspnea, syncope, headache, dizziness, GI bleed, back pain, seizure, CVA, palpatations, mental health, musculoskeletal)? @ -Differential Syncope: Valvular disease, hypertrophic cardiomyopathy, pulmonary embolism, tamponade, tachycardia, bradycardia, SC, hypovolemia, hemorrhage, dissection, anemia, intracranial hemorrhage, seizure, hypoglycemia, carbon monoxide poisoning, this is not meant to be an all-inclusive list. EKG interpreted by me (3pts min.). @ -As above X-rays interpreted by me (1pt min.). @ -None done CT interpreted by me (1pt min.). @ -No hemorrhage, mass effect or fracture U/S interpreted by me (1pt. min.). @ -None done What testing was considered but not performed or refused? (CT, X-rays, U/S, labs)? Why? @Did consider chest x-ray however please see my reasoning noted below in hospital course What meds were considered but not given or refused? Why? @ -None Did you discuss the management of the patient with other professionals (professionals i.e. , PA, CYBER THREAT ANALYST, lab, RT, psych nurse, medical social consultant, ice cream vendor, teacher, crime prevention police officer, case folder)? Give summary @ -No Was smoking cessation discussed for >3mins.? @ -No Was critical care preformed (if so, how long)? @ -No Were there social determinants of health that impacted care today? How? (Homelessness, low income, unemployed, alcoholism, drug addiction, transportation, low edu. Level, literacy, decrease access to med. care, usp, rehab)? @ -No Was there de-escalation of care discussed even if they declined (Discuss DNR or withdrawal of care, Hospice)? @ -No What co-morbidities impacted this encounter? (DM, HTN, Smoking, COPD, CAD, Cancer, CVA, ARF, Chemo, Hep., AIDS, mental health diagnosis, sleep apnea, morbid obesity)? @ -None Was patient admitted / discharged? Hospital course, mention meds given and route, prescriptions, significant lab abnormalities, going to OR and other pertinent info. @ -Hospital course discharged Patient is a pleasant 38-year-old female past medical history aneurysm with stent in place on 325 mg aspirin daily presenting for syncopal episode that caused her to fall, hit her head and lose consciousness. Patient awake and alert, on assessment, does appear somewhat ill-appearing but nontoxic and in no acute distress. Exam shows no midline spinal tenderness, palpable hematoma to the left posterior parietal scalp, no hemotympanum, no tongue biting, no focal neurologic deficits, PERRL, normal S1/2 cardiac exam, no murmurs, LCTAB, extremities atraumatic. Using [place] C-spine rule, patient can be cleared on physical exam alone and does not require CT C-spine. However due to loss of consciousness, palpable hematoma on exam patient's headache I will obtain a CT brain. Additionally regarding syncopal episode plan for EKG to ensure no arrhythmia, CBC, CMP, urinalysis, blood alcohol, magnesium level, hCG quant. Patient denied any chest pain, shortness of breath or palpitations. She has no family history of sudden cardiac . Pulmonary exam was reassuring. For this reason I do not think a chest x-ray is warranted. Discussed this with patient and she is agreeable with pOC and foregoing CXR. Labs and imaging reviewed. Grossly within normal limits. CT brain negative for acute process. Abnormal values not concerning for acute pathology related to presenting complaint. Currently pending D-dimer. D-dimer 0.29. Updated patient to findings. Patient endorses improvement of symptoms. She is comfortable discharge home. We discussed signs symptoms to monitor for warranting return to the emergency department all questions were answered and patient was discharged in good condition. We also discussed concussion care and the importance of brain rest. Patient given work note to abstain from work the next 2 days in order to ensure brain rest. In my medical judgment there is currently no evidence of an immediate life- threatening or surgical condition. Discharge is therefore indicated at this time. Discharge treatment instructions, follow up instructions, and appropriate e mergency department return precautions were discussed with the patient and/or medical decision maker. Patient and/or medical decision maker expressed understanding of and agreed with the treatment plan, follow up instructions, and emergency department return precaution. All patient's and/or medical decision maker's questions were answered. The patient was advised that a small risk still exists that a serious condition could develop and was therefore instructed to return to the ED for any changes in symptoms, persistent symptoms, inability to obtain proper follow-up or for any further concerns. Patient received verbal and written instructions for this condition. Undiagnosed new problem with uncertain prognosis? @ -No Drug Therapy requiring intensive monitoring for toxicity (Heparin, Nitro, Insulin, Cardizem)? @ -No Were any procedures done? @ -No Diagnosis/symptom? @ -Syncopal episode, concussion Acute, or Chronic, or Acute on Chronic? @ -Acute Uncomplicated (without systemic symptoms) or Complicated (systemic symptoms)? @ -Complicated Side effects of treatment? @ -No Exacerbation, Progression, or Severe Exacerbation? @ -No Poses a threat to life or bodily function? How? (Chest pain, USA, SC, pneumonia, PE, COPD, DKA, ARF, appy, cholecystitis, CVA, Diverticulitis, Homicidal, Sruthi cidal, threat to staff... and all critical care pts) @ Unlikely at time of discharge - Lab Data Result diagrams: 04/03/24 22:30 04/03/24 22:40 Lab Results 04/03/24 04/03/24 04/03/24 Range/Units 22:30 22:40 22:40 WBC 10.4 (3.8-10.6) k/uL RBC 4.61 (3.80-5.40) m/uL Hgb 13.3 (11.4-16.0) gm/dL Hct 40.2 (34.0-46.0) % MCV 87.2 (80.0-100.0) fL MCH 28.7 (25.0-35.0) pg MCHC 33.0 (31.0-37.0) g/dL RDW 12.8 (11.5-15.5) % Plt Count 244 (150-450) k/uL MPV 9.1 Neutrophils % 65 % Lymphocytes % 25 % Monocytes % 6 % Eosinophils % 2 % Basophils % 0 % Neutrophils # 6.8 (1.3-7.7) k/uL Lymphocytes # 2.6 (1.0-4.8) k/uL Monocytes # 0.6 (0-1.0) k/uL Eosinophils # 0.2 (0-0.7) k/uL Basophils # 0.0 (0-0.2) k/uL PT 10.2 (10.0-12.5) sec INR 0.9 (<1.2) APTT 24.5 (22.0-30.0) sec D-Dimer 0.29 (<0.60) mg/L FEU Sodium 140 (137-145) mmol/L Potassium 3.8 (3.5-5.1) mmol/L Chloride 113 H (98-107) mmol/L Carbon Dioxide 22 (22-30) mmol/L Anion Gap 5 mmol/L BUN 18 H (7-17) mg/dL Creatinine 0.85 (0.52-1.04) mg/dL Est GFR (CKD-EPI)AfAm >90 (>60 ml/min/1.73 sqM) Est GFR (CKD-EPI)NonAf 88 (>60 ml/min/1.73 sqM) Glucose 89 (74-99) mg/dL Calcium 9.3 (8.4-10.2) mg/dL Magnesium 1.8 (1.6-2.3) mg/dL Total Bilirubin 0.4 (0.2-1.3) mg/dL AST 34 (14-36) U/L ALT 36 H (4-34) U/L Alkaline Phosphatase 91 (38-126) U/L Troponin I (0.000-0.034) ng/mL Total Protein 6.5 (6.3-8.2) g/dL Albumin 3.9 (3.5-5.0) g/dL HCG, Quant <2.4 mIU/mL Serum Alcohol <10 mg/dL 04/03/24 Range/Units 22:40 WBC (3.8-10.6) k/uL RBC (3.80-5.40) m/uL Hgb (11.4-16.0) gm/dL Hct (34.0-46.0) % MCV (80.0-100.0) fL MCH (25.0-35.0) pg MCHC (31.0-37.0) g/dL RDW (11.5-15.5) % Plt Count (150-450) k/uL MPV Neutrophils % % Lymphocytes % % Monocytes % % Eosinophils % % Basophils % % Neutrophils # (1.3-7.7) k/uL Lymphocytes # (1.0-4.8) k/uL Monocytes # (0-1.0) k/uL Eosinophils # (0-0.7) k/uL Basophils # (0-0.2) k/uL PT (10.0-12.5) sec INR (<1.2) APTT (22.0-30.0) sec D-Dimer (<0.60) mg/L FEU Sodium (137-145) mmol/L Potassium (3.5-5.1) mmol/L Chloride (98-107) mmol/L Carbon Dioxide (22-30) mmol/L Anion Gap mmol/L BUN (7-17) mg/dL Creatinine (0.52-1.04) mg/dL Est GFR (CKD-EPI)AfAm (>60 ml/min/1.73 sqM) Est GFR (CKD-EPI)NonAf (>60 ml/min/1.73 sqM) Glucose (74-99) mg/dL Calcium (8.4-10.2) mg/dL Magnesium (1.6-2.3) mg/dL Total Bilirubin (0.2-1.3) mg/dL AST (14-36) U/L ALT (4-34) U/L Alkaline Phosphatase (38-126) U/L Troponin I <0.012 (0.000-0.034) ng/mL Total Protein (6.3-8.2) g/dL Albumin (3.5-5.0) g/dL HCG, Quant mIU/mL Serum Alcohol mg/dL Disposition Clinical Impression: Concussion, Syncope Disposition: HOME SELF-CARE Condition: Good Instructions (If sedation given, give patient instructions): Concussion (ED) Additional Instructions: Every disease is a spectrum and a small chance still exists that a serious condition could develop, for this reason, please monitor yourself closely for new, changing or worsening symptoms, symptoms/headache that persist beyond 48 hours, confusion, difficulty waking up, severe nausea and vomiting, headache, controlled with home medications, changes in vision, slurred speech numbness or weakness/strokelike symptoms, chest pain or difficulty in breathing fever, inability to tolerate/keep down fluids or your medications, inability to follow up with outpatient providers as instructed and should you experience these symptoms or should you have any further concerns for your wellbeing please return to the ED or call 911 immediately. This information is being provided to you in addition to your ER discharge instructions. Today you were evaluated for a concussion. A concussion is a blow or jolt to your head that can disrupt the normal function of the brain. A concussion is not usually life threatening, but the effect of a concussion can be serious. Loss of consciousness only occurs in less than 10% of all concussions. CT scans of the brain are almost always normal. The injuries from concussion are hard to picture because there isn't anything to see. The damage to the brain is microscopic. Concussion is diagnosed, for the most part based on the history of the injury and the symptoms. Signs and symptoms of concussion Headache, nausea and/or vomiting, problems with balance and/or walking, dizziness, vision changes (double vision, fuzzy, blurry), sensitivity to light and noise, feeling sluggish or slowed down/tired, sleep disturbances (sleeping too much or not enough), changes in behavior or personality, feeling "foggy" mentally, slow to respond to questions, problems with concentration and/or memery (amnesia), appears dazed, repeats same questions Caring for Your Concussion at Home The most important thing for you to do is stop all activity, that could lead to further head injury. THE BRAIN NEEDS REST. Manage your pain as per your doctor's orders (avoid Motrin, Aleve and Aspirin because they can cause bleeding to become worse). You may put ice on swollen areas and keep wounds clean. Provide fluids and a light diet until you feel better. Monitor yourself for any of the symptoms mentioned above when at rest and when active. If you shows any of these symptoms then you have not recovered from the concussion and cannot return to normal activity Returning to Normal Activity Because there are many differences of opinion in the criteria used to establish when you can return to normal activities, we recommend that you consult your health care provider and let them make the final determination. If you have symptoms that continue longer than one week you need to be re-evaluated by your health care provider. You may need a referral to have neurocognitive (this is a special evaluation that evaluates learning, memory and coordination) testing done by a neuropsychologist. When it is important to immediately return to the ER If, after you go home, you develop a severe headache, vomiting, severe drowsiness, the inability to wake up or seizures. Return to the ER immediately as these are signs of increased pressure within the brain. PLEASE call your primary care physician as soon as possible to arrange / discuss plan for followup appointment. Appointment in the next 1-3 days is strongly encouraged if possible. PLEASE let us know here before you leave if there is anything further we can do to be of any assistance. Take care and feel Better! Is patient prescribed a controlled substance at d/c from ED?: No Referrals: Angel Carracso MD [Primary Care Provider] - 1-2 days
[2024-04-03] MEDS: ACETAMINOPHEN TAB 500 MG TAB PO STA (22:33)
[2024-04-03] MEDS: SODIUM CHLORIDE 0.9% 1,000 ML IV STA (22:33)
[2024-04-03 23:17] LABS: Basophils % (A) 0 %; Eosinophils # (A) 0.2 k/uL (0-0.7); Eosinophils % (A) 2 %; HCT 40.2 % (34.0-46.0); HGB 13.3 gm/dL (11.4-16.0); Lymphocytes # (A) 2.6 k/uL (1.0-4.8); Lymphocytes % (A) 25 %; MCH 28.7 pg (25.0-35.0); MCV 87.2 fL (80.0-100.0); Mean Platelet Volume 9.1; Monocytes # (A) 0.6 k/uL (0-1.0); Monocytes % (A) 6 %; Neutrophils # (A) 6.8 k/uL (1.3-7.7); Neutrophils % (A) 65 %; Platelet Count 244 k/uL (150-450); RBC 4.61 m/uL (3.80-5.40); RDW 12.8 % (11.5-15.5); WBC 10.4 k/uL (3.8-10.6)
[2024-04-03 23:43] LABS: ALT 36 U/L (4-34); AST 34 U/L (14-36); African American GFR (CKD) >90 (>60 ml/min/1.73 sqM); Albumin 3.9 g/dL (3.5-5.0); Alcohol <10 mg/dL; Alkaline Phosphatase 91 U/L (38-126); Anion Gap 5 mmol/L; Blood Urea Nitrogen 18 mg/dL (7-17); Calcium 9.3 mg/dL (8.4-10.2); Carbon Dioxide 22 mmol/L (22-30); Chloride 113 mmol/L (98-107); Glucose 89 mg/dL (74-99); Magnesium 1.8 mg/dL (1.6-2.3); Non-African American GFR(CKD) 88 (>60 ml/min/1.73 sqM); Potassium 3.8 mmol/L (3.5-5.1); Sodium 140 mmol/L (137-145); Total Bilirubin 0.4 mg/dL (0.2-1.3); Total Protein 6.5 g/dL (6.3-8.2)
--- NOTE | 2024-04-03 23:53 | CT ---
EXAM: CT Head Without Intravenous Contrast CLINICAL HISTORY: ITS.REASON CT Reason: syncope TECHNIQUE: Axial computed tomography images of the head/brain without intravenous contrast. This CT exam was performed using one or more of the following dose reduction techniques: automated exposure control, adjustment of the mA and/or kV according to patient size, and/or use of iterative reconstruction technique. COMPARISON: No relevant prior studies available. FINDINGS: Brain: Unremarkable. No hemorrhage. No significant white matter disease. No edema. Ventricles: Unremarkable. No ventriculomegaly. Bones/joints: Unremarkable. No acute fracture. Soft tissues: Unremarkable. Sinuses: Unremarkable as visualized. No acute sinusitis. Mastoid air cells: Unremarkable as visualized. No mastoid effusion. IMPRESSION: Normal head/brain CT.
[2024-04-03 23:59] LABS: HCG,Quantitative Serum <2.4 mIU/mL
[2024-04-04 00:27] LABS: INR 0.9 (<1.2)
[2024-04-04 00:28] LABS: Partial Thromboplastin Time 24.5 sec (22.0-30.0); Prothrombin Time 10.2 sec (10.0-12.5)
[2024-04-04] MEDS: KETOROLAC 15 MG/ML 1 ML VIAL IVP STA (00:35)
[2024-04-04 01:36] VITALS: BP 104/55; PULSE 67
== END 2024-04-04 01:45 | disposition home or self-care (01) ==
LOC: EC 21:00
CPT/HCPCS: 36415; 70450; 80053; 80320; 83735; 84484; 84702; 85025; 85379; 85610; 85730; 93005; 96361; 96374; 99285

== ENCOUNTER → 2024-05-03 | Outpatient (CLI) | payer OTHER ==
--- NOTE | 2024-05-03 10:17 | CT ---
EXAMINATION TYPE: CT brain without contrast. CT angio head DATE OF EXAM: 05/03/2024 9:36 AM COMPARISON: 04/03/2024. CLINICAL INDICATION: Female, 38 years old with history of I72.9 ANEURYSM OF UNSPECIFIED SITE R55; , S yncope, aneurysm of unspecified site, pt states she has a coil placed in 2013. TECHNIQUE: CT brain without contrast followed by CT angiogram. CT angio head Axially acquired helical CT angiogr am was obtained. Axial images are supplemented with 3D reconstructions which were post-processed at a n independent workstation. NASCET criteria used. Contrast used:100 mL of Isovue 370 with IV Contrast, none Oral contrast used: none CT DLP: 1227 mGycm, Automated exposure control for dose reduction was used. FINDINGS: Vertebral arteries: The vertebral arteries are patent. Vertebral artery dominance: Codominant Basilar artery: The basilar artery is intact. The basilar artery bifurcation is normal. Internal Carotid arteries: Right sided suspected aneurysmal coil placement placement. This limits jacqueline luation of this region. The cervical, petrous, cavernous and supraclinoid segments are normal. LOVE: Patent with no evidence of aneurysm. ACOM: Present without evidence of aneurysm. MCA: Patent with no evidence of aneurysm. FIRE SAFETY MANAGER: Patent with no evidence of aneurysm. PCOM: Hypoplastic bilaterally. Dural sinuses: Patent. IMPRESSION: Suspected post aneurysmal coil placement without residual aneurysm identified. No high-grade stenosis or aneurysm present. [facility], , 05/03/2024 10:15 AM
--- NOTE | 2024-05-03 12:34 | CA ---
Exercise Stress Test Report Name: Nirmala Alejo Exam Date: 05/03/2024 09:18 Exam Location: [place] Stress Ht (in): 61 Wt (lb): 182 BSA: 1.81 Ordering Phys: Angel Carrasco MD Referring Phys: Angel Carrasco MD Technologist: Joshua Simpson Age: 38 Gender: F : 1985 Procedure CPT: Indications: R55 Syncope ICD-10 Codes: Patient History: CHEST PAIN, DIFFICULTY IN BREATHING, PALPITATIONS, FAMILY HX OF HEART DISEASE, PRIOR SMOKER, ASTHMA Medications: OMPRAZOLE, MAGNESIUM, ADIPEX Meds past 24 hrs: Pretest Chest Pain: STRESS TEST Jaren Protocol Exercise Duration (min:sec): 09:[address] Depressions (mm): Angina Score: Jones Score: Resting HR (bpm): 84 Peak HR (bpm): 155 Resting BP (mmHg): 120 / 86 Peak BP (mmHg): 182 / 81 MPHR: 182 Target HR: 155 % MPHR: 85 METS: 10.3 Total Dose: Peak Dose: Atropine: Double Product: 38810 BP Response: Stress Termination: TARGET HR REACHED/MAX EXERTION Stress Symptoms: CHEST PAIN Stress Summary: ECG ANALYSIS Resting ECG: Normal sinus rhythm normal axis normal intervals Stress ECG: Patient exercised on Jaren protocol for 9 minutes achieving 10 METS 85% of predicted maximal heart rate without chest pain or diagnostic ST segment depression CONCLUSIONS Good exercise tolerance Negative stress test by EKG criteria Dr. Jorge Luis Lakhani MD (Electronically Signed) Final Date: 03 May 2024 12:33
== END | disposition home or self-care (01) ==
LOC: RADCTMAIN 08:19
PROVIDERS: ATTEND Family Medicine
CPT/HCPCS: 70496; 93017; 93225

== ENCOUNTER → 2024-05-03 | Outpatient (CLI) | payer OTHER | END | disposition home or self-care (01) | LOC: RADECHMAIN 09:07 | PROVIDERS: ATTEND Family Medicine | DX: Z53.9 Procedure and treatment not carried out, unspecified reason (principal) ==

== ENCOUNTER → 2024-05-07 | Outpatient (CLI) | payer OTHER ==
--- NOTE | 2024-05-08 11:09 | CA ---
Transthoracic Echo Report Name: Nirmala Alejo Age: 38 Gender: F : 1985 Exam Date: 05/07/2024 16:02 Exam Location: [place] [facility] Ht (in): 61 Wt (lb): 182 Ordering Physician: Angel Carrasco MD Attending/Referring Phys: Angel Carrasco MD Informatics Specialist Alexa Larkin, [facility] Procedure CPT: Indications: I72.9 ANEURYSM OF UNSPECIFIED SITE R55 SYNCOPE Cardiac Hx: Technical Quality: Fair Contrast 1: Total Dose (mL): Contrast 2: Total Dose (mL): MEASUREMENTS (Male / Female) Normal Values 2D ECHO LV Diastolic Diameter PLAX 4.1 cm 4.2 - 5.9 / 3.9 - 5.3 cm LV Systolic Diameter PLAX 2.4 cm IVS Diastolic Thickness 1.1 cm 0.6 - 1.0 / 0.6 - 0.9 cm LVPW Diastolic Thickness 1.0 cm 0.6 - 1.0 / 0.6 - 0.9 cm LV Relative Wall Thickness 0.5 RV Internal Dim ED PLAX 3.0 cm M-MODE Aortic Root Diameter MM 2.7 cm LA Systolic Diameter MM 3.3 cm LA Ao Ratio MM 1.2 DOPPLER AV Peak Velocity 132.7 cm/s AV Peak Gradient 7.0 mmHg AV Mean Velocity 82.7 cm/s AV Mean Gradient 3.2 mmHg AV Velocity Time Integral 23.3 cm LVOT Peak Velocity 87.4 cm/s LVOT Peak Gradient 3.1 mmHg LVOT Velocity Time Integral 18.6 cm Mitral E Point Velocity 97.5 cm/s Mitral A Point Velocity 52.9 cm/s Mitral E to A Ratio 1.8 MV Deceleration Time 161.6 ms MV E' Velocity 10.6 cm/s Mitral E to MV E' Ratio 9.2 FINDINGS Left Ventricle Mildly increased left ventricular wall thickness. Left ventricular cavity size normal. Normal left ventricular systolic function with no obvious regional wall motion abnormalities. Left ventricular ejection fraction is estimated at 55-60 %. Grade 1 diastolic dysfunction. Right Ventricle Right ventricular systolic pressure within normal limits. Normal right ventricular size and function. Right Atrium Normal right atrial size. Left Atrium Normal left atrial size. Mitral Valve Structurally normal mitral valve. No mitral stenosis, regurgitation or prolapse. Aortic Valve Trileaflet aortic valve. No aortic valve stenosis or regurgitation. Tricuspid Valve Structurally normal tricuspid valve. Mild tricuspid regurgitation. Pulmonic Valve Structurally normal pulmonic valve. Pericardium No pericardial effusion. Aorta Normal size aortic root and proximal ascending aorta. CONCLUSIONS Normal left ventricular size wall motion and LV systolic function with an ejection fraction of 60% Previewed by: Dr. Jorge Luis Lakhani MD (Electronically Signed) Final Date: 08 May 2024 11:08
== END | disposition home or self-care (01) ==
LOC: RADECHMAIN 15:56
PROVIDERS: ATTEND Family Medicine
DX: I72.9 Aneurysm of unspecified site (principal); R55 Syncope and collapse
CPT/HCPCS: 93306